=== PATIENT | male | born 1970 | race African-American/Black ===

== ENCOUNTER 2018-12-24 11:22 | Emergency (ER) | payer SELFPAY ==
[~2018-12-24] VITALS: Ht 172.7 cm; Wt 63.6 kg
[2018-12-24 11:53] VITALS: BP 141/82; PULSE 85; TEMP 99.1
== END 2018-12-24 13:10 | disposition home or self-care (01) ==
LOC: COL.ER 11:22
DX: S62.334A Displaced fracture of neck of fourth metacarpal bone, right hand, initial encounter for closed fracture (principal); Y04.0XXA Assault by unarmed brawl or fight, initial encounter
CPT/HCPCS: Q4021